=== PATIENT | female | born 1955 | race Caucasian/White ===

== ENCOUNTER 2016-12-13 12:47 | Outpatient (CLI) | payer OTHER ==
[2016-12-13 18:08] LABS: BILIRUBIN,URINE NEGATIVE (NEGATIVE)
[2016-12-13 18:18] LABS: WBC,URINE 0-3 /HPF (0-5)
== END 2016-12-13 12:48 | disposition home or self-care (01) ==
LOC: LAB.F 12:47
PROVIDERS: ATTEND Physician Assistant Medical
DX: R35.0 Frequency of micturition (principal)
CPT/HCPCS: 81001

== ENCOUNTER 2018-02-20 09:59 | Outpatient (CLI) | payer MEDICARE, OTHER ==
--- NOTE | 2018-02-20 12:53 | DEXA Report ---
Procedure Date: 02/20/2018 Accession Number: [id number] / [id number] Procedure: DEX - Dexa Spine and/or Hip CPT Code: FULL RESULT: EXAM: DUAL EMISSION X-RAY ABSORPTIOMETRY (DEXA) SCAN EXAM DATE: 02/20/2018 10:28 AM CLINICAL HISTORY: POSTMENOPAUSAL STATUS. COMPARISON: None. TECHNIQUE: Central DEXA bone densitometry on a [employer] system. FINDINGS: Bone Mineral Density L1-L4 lumbar spine BMD: Technical limitations: None. (g/cm2, T-score, Z-score) 1.164, -0.1, 1.4 Baseline. Left Femur BMD: Technical limitations: None. (g/cm2, T-score, Z-score) 0.958, -0.6, 0.8 Neck Left 1.009, 0.0, 1.1 Total Left Baseline. World Health Organization reporting guidelines (based on the lowest BMD) for postmenopausal Young adult bone mineral density comparison (T-score): - Normal: T-score at or above -1.0 standard deviations - Low bone mass (osteopenia): T-score between -1.0 and -2.5 standard deviations - Osteoporosis: T-score at or below -2.5 standard deviations IMPRESSION: 1. Normal bone density. 2. This study serves as a baseline. RECOMMENDATIONS ([employer]): 1. Advise adequate intake of calcium and vitamin D. 2. Advise regular weight-bearing and muscle-strengthening exercise, fall prevention strategies, cessation of tobacco use, and avoidance of excessive alcohol intake. 3. Consider medical therapy in postmenopausal women and men age 50 or older with prior hip or vertebral fracture (clinical or morphometric). 4. Consider follow-up DEXA (at the same facility to allow quantitative comparison) as clinically indicated for individuals at risk for low bone density or if there is height loss, new back pain, postural change, suspicious radiographic findings, or glucocorticoid therapy. [facility]
== END 2018-02-20 10:00 | disposition home or self-care (01) ==
LOC: DI 09:59
PROVIDERS: ATTEND Physician Assistant Medical
DX: Z78.0 Asymptomatic menopausal state (principal)
CPT/HCPCS: 77080

== ENCOUNTER 2018-02-28 07:14 | Outpatient (CLI) | payer MEDICARE ==
[2018-02-28 11:25] LABS: BUN - BLOOD UREA NITROGEN 23 mg/dL (6-20); CALCIUM 9.2 mg/dL (8.5-10.3); CARBON DIOXIDE - CO2 28 mmol/L (21-32); CHLORIDE 104 mmol/L (101-111); CHOL/HDL RATIO 3.8 (<4.4); CHOLESTEROL 268 mg/dL; GFR - MDRD 56 (>89); GLUCOSE 90 mg/dL (70-100); HDL CHOLESTEROL 71 mg/dL; LDL CHOLESTEROL,CALCULATED 185 mg/dL; LDL/HDL RATIO 2.6 (<4.4); SODIUM 138 mmol/L (135-145); VLDL CHOLESTEROL 12 mg/dL
[2018-02-28 12:01] LABS: HB2 TOTAL 14.4 g/dL; HEMOGLOBIN A1C 0.47 g/dL; HEMOGLOBIN A1C % 5.1 % (4.6-6.2)
== END 2018-02-28 07:15 | disposition home or self-care (01) ==
LOC: LAB.F 07:14
PROVIDERS: ATTEND Internal Medicine
DX: Z13.1 Encounter for screening for diabetes mellitus (principal); Z13.6 Encounter for screening for cardiovascular disorders
CPT/HCPCS: 36415; 80048; 80061; 83036; 83721

== ENCOUNTER 2019-04-23 14:50 | Outpatient (CLI) | payer MEDICARE | END 2019-04-23 23:59 | disposition home or self-care (01) | LOC: LAB.R 14:50 | PROVIDERS: ATTEND Family Medicine | DX: N39.0 Urinary tract infection, site not specified (principal) | CPT/HCPCS: 87086 ==